=== PATIENT | female | born 1945 | race Caucasian/White ===

== ENCOUNTER 2018-10-25 13:17 | Emergency (ER) | payer OTHER ==
[~2018-10-25] VITALS: Ht 157.5 cm; Wt 59.9 kg
[2018-10-25 13:40] VITALS: BP 147/78
[2018-10-25 14:52] LABS: Basophils # (auto) 0 uL; Basophils % (auto) 0.4 % (0.0-2.0); Eosinophils # (auto) 0 uL; Eosinophils % (auto) 0.4 % (0.0-7.0); Hematocrit 42.9 % (36.0-46.0); Hemoglobin 14.3 g/dL (12.2-16.2); Lymphocytes # (auto) 1.5 uL; Lymphocytes % (auto) 19.5 % (10.0-50.0); Mean Corpuscular Hemoglobin 29.9 pg (28.0-32.0); Mean Corpuscular Hgb Conc. 33.2 g/dL (32.0-36.0); Monocytes # (auto) 0.4 uL; Monocytes % (auto) 5.2 % (0.0-12.0); Neutrophils # (auto) 5.7 uL; Neutrophils % (auto) 74.5 % (37.0-80.0); Platelet Count (auto) 180 10^3/uL (140-450); Red Blood Cells 4.77 10^6/uL (4.0-5.20); White Blood Cell 7.7 10^3/uL (4.4-10.8)
[2018-10-25 15:12] LABS: Alanine Aminotransferase 16 U/L (13-56); Albumin 3.9 g/dL (3.4-5.0); Anion Gap 4 (5-15); Aspartate Aminotransferase 12 U/L (15-37); BUN/Creatinine Ratio 20.4; Blood Urea Nitrogen 19 mg/dL (7-18); Calcium 9.2 mg/dL (8.5-10.1); Carbon Dioxide 28 mmol/L (21-32); Chloride 108 mmol/L (98-107); GFR African American 76 mL/min; GFR Non-African American 62 mL/min; Glucose 148 mg/dL (74-106); Potassium 3.4 mmol/L (3.5-5.1); Sodium 140 mmol/L (136-145)
[2018-10-25 15:16] LABS: Alkaline Phosphatase 73 U/L (45-117); Bilirubin, Total 0.7 mg/dL (0.2-1.0); Total Protein 7.3 g/dL (6.4-8.2)
== END 2018-10-25 16:16 | disposition home or self-care (01) ==
LOC: ER 13:27
DX: S29.011A Strain of muscle and tendon of front wall of thorax, initial encounter (principal); S39.012A Strain of muscle, fascia and tendon of lower back, initial encounter; M48.061 Spinal stenosis, lumbar region without neurogenic claudication; M19.90 Unspecified osteoarthritis, unspecified site; W01.0XXA Fall on same level from slipping, tripping and stumbling without subsequent striking against object, initial encounter; Y93.89 Activity, other specified; Y92.098 Other place in other non-institutional residence as the place of occurrence of the external cause; Y99.8 Other external cause status
CPT/HCPCS: 36415; 71046; 72100; 80053; 84484; 85025

== ENCOUNTER 2018-11-04 09:19 | Emergency (ER) | payer OTHER ==
[~2018-11-04] VITALS: Ht 157.5 cm; Wt 58.5 kg
[2018-11-04 10:49] LABS: Basophils # (auto) 0 uL; Basophils % (auto) 0.3 % (0.0-2.0); Eosinophils # (auto) 0 uL; Eosinophils % (auto) 0.2 % (0.0-7.0); Hematocrit 44.5 % (36.0-46.0); Hemoglobin 14.9 g/dL (12.2-16.2); Lymphocytes # (auto) 1.3 uL; Lymphocytes % (auto) 22.5 % (10.0-50.0); Mean Corpuscular Hemoglobin 29.5 pg (28.0-32.0); Mean Corpuscular Hgb Conc. 33.5 g/dL (32.0-36.0); Mean Corpuscular Volume 88.3 fL (80.0-100.0); Monocytes # (auto) 0.4 uL; Monocytes % (auto) 6.7 % (0.0-12.0); Neutrophils # (auto) 4.2 uL; Neutrophils % (auto) 70.3 % (37.0-80.0); Platelet Count (auto) 195 10^3/uL (140-450); Red Blood Cells 5.04 10^6/uL (4.0-5.20); Red Cell Distribution Width 13.4 % (11.8-14.3)
[2018-11-04 11:02] LABS: Alanine Aminotransferase 19 U/L (13-56); Albumin 3.8 g/dL (3.4-5.0); Anion Gap 7 (5-15); Aspartate Aminotransferase 15 U/L (15-37); BUN/Creatinine Ratio 18.4; Blood Urea Nitrogen 14 mg/dL (7-18); Calcium 8.7 mg/dL (8.5-10.1); Carbon Dioxide 22 mmol/L (21-32); Chloride 108 mmol/L (98-107); GFR African American 95 mL/min; GFR Non-African American 79 mL/min; Glucose 108 mg/dL (74-106); Potassium 3.7 mmol/L (3.5-5.1); Sodium 137 mmol/L (136-145)
[2018-11-04 11:07] LABS: Alkaline Phosphatase 75 U/L (45-117); Bilirubin, Total 0.9 mg/dL (0.2-1.0); Total Protein 7.5 g/dL (6.4-8.2)
[2018-11-04 13:55] VITALS: BP 114/79
== END 2018-11-04 13:58 | disposition home or self-care (01) ==
LOC: ER 09:19
DX: R55 Syncope and collapse (principal); R51 Headache; K76.89 Other specified diseases of liver; M51.36 Other intervertebral disc degeneration, lumbar region; W18.39XA Other fall on same level, initial encounter; Y93.89 Activity, other specified; Y92.89 Other specified places as the place of occurrence of the external cause; Y99.8 Other external cause status
CPT/HCPCS: 36415; 70450; 71046; 74176; 80053; 84484; 85025; 93005

== ENCOUNTER 2022-09-14 06:46 | Inpatient (IN) | payer OTHER ==
[~2022-09-14] VITALS: Ht 157.5 cm; Wt 64.9 kg
[~2022-09-14 06:46] MED LIST: ALEN70TA74 PO; LEVO25TA6 PO; SIMV-13 PO
[2022-09-14] MEDS ORDERED: SUCCINYLCHOLINE CHLORIDE 20 MG/ML 10ML VIAL IV ONE (06:50)
[2022-09-14] MEDS ORDERED: ROCURONIUM 10MG/ML 10ML VIAL IV ONE (06:50)
[2022-09-14] MEDS ORDERED: ceFAZolin 1GM/50ML 50 ML IV ONE (06:56)
[2022-09-14] MEDS ORDERED: ONDANSETRON HCL 4 MG/2 ML VIAL ONE (07:07)
[2022-09-14] MEDS ORDERED: PROPOFOL 10 MG/ML 20 ML IV ONE (07:07)
[2022-09-14] MEDS ORDERED: DexAMETHasone SOD PHOS 10MG/1ML VIAL INJ ONE (07:07)
[2022-09-14] MEDS ORDERED: NEOSTIGMINE 1 MG/ML INJ (10mg/10ML VIAL) ONE (07:07)
[2022-09-14] MEDS ORDERED: HYDROmorphone HCL 2 MG/ML VL/or syr ONE (07:07)
[2022-09-14] MEDS ORDERED: MIDAZOLAM HCL 2MG/2ML 2ml VIAL (1mg/ml) ONE (07:07)
[2022-09-14] MEDS ORDERED: fentaNYL CITRATE 100 MCG/2 ML VL ONE (07:07)
[2022-09-14] MEDS ORDERED: SODIUM CHLORIDE LOCK 40 ML ONE (07:07)
[2022-09-14] MEDS ORDERED: THROMBIN (BOVINE) 5000 UNIT SOL VIAL ONE (07:12)
[2022-09-14] MEDS ORDERED: MINERAL OIL TOPICAL 10ml TOP ONE (07:23)
[2022-09-14] MEDS ORDERED: ACETAMINOPHEN 325 MG TAB PO PRN (10:45)
[2022-09-14] MEDS ORDERED: MORPHINE SULFATE INJ 2 MG/ml SYRG IV PRN ×3 (10:45→12:45)
[2022-09-14] MEDS ORDERED: ONDANSETRON HCL 4 MG/2 ML VIAL IV PRN (10:45)
[2022-09-14] MEDS ORDERED: DexAMETHasone INJECTION 10 MG in D5W 5% 50 ML IV ONE (10:45)
[2022-09-14] MEDS: ceFAZolin 1GM/50ML 50 ML IV SCH ×2 (10:45→18:24)
[2022-09-14] MEDS ORDERED: HYDROcodone-ACET 10/325MG TAB PO PRN (10:45)
[2022-09-14] MEDS ORDERED: THROAT LOZENGES(CEPASTAT) MT PRN (10:45)
[2022-09-14] MEDS ORDERED: MORPHINE SULFATE INJ 2 MG/ml SYRG IV ONE (11:17)
[2022-09-14] MEDS ORDERED: METOCLOPRAMIDE HCL 5MG/ml INJ 2ml VIAL IV PRN (11:45)
[2022-09-14] MEDS ORDERED: HYDROmorphone HCL 2 MG/ML VL/or syr IV PRN ×2 (11:45)
[2022-09-14] MEDS: METHOCARBAMOL 500 MG TAB PO SCH ×3 (12:00→21:51)
[2022-09-14] MEDS ORDERED: NITROGLYCERIN 0.4 MG SL TAB SL PRN (12:45)
[2022-09-14 16:54] VITALS: BP 111/44
[2022-09-14] MEDS: D5W/SOD CHLO 0.9% 1,000 ML IV SCH ×2 (17:21→20:45)
[2022-09-14 22:00] VITALS: BP 133/62
[2022-09-15] MEDS: ceFAZolin 1GM/50ML 50 ML IV SCH (02:50)
[2022-09-15 05:00] VITALS: BP 139/63
[2022-09-15] MEDS: METHOCARBAMOL 500 MG TAB PO SCH ×4 (05:37→21:46)
[2022-09-15] MEDS: D5W/SOD CHLO 0.9% 1,000 ML IV SCH ×2 (06:45→16:45)
[2022-09-15 08:46] VITALS: BP 111/47
[2022-09-15] MEDS ORDERED: diphenhdrAMINE HCL 25 MG CAP PO PRN (11:45)
[2022-09-15 12:26] VITALS: BP 108/38
[2022-09-15 16:46] VITALS: BP 113/45
[2022-09-15] MEDS ORDERED: DexAMETHasone SOD PHOS 10MG/1ML VIAL INJ IM ONE (21:15)
[2022-09-15] MEDS ORDERED: DexAMETHasone SOD PHOS 10MG/1ML VIAL INJ IV ONE (21:45)
[2022-09-15 22:00] VITALS: BP 114/46
[2022-09-16] MEDS: D5W/SOD CHLO 0.9% 1,000 ML IV SCH (02:45)
[2022-09-16] MEDS: METHOCARBAMOL 500 MG TAB PO SCH ×2 (05:26→11:00)
[2022-09-16 06:25] VITALS: BP 127/53
[2022-09-16] MEDS ORDERED: DexAMETHasone SOD PHOS 10MG/1ML VIAL INJ IV ONE (08:00)
[2022-09-16] MEDS ORDERED: DexAMETHasone SOD PHOS 10MG/1ML VIAL INJ IM ONE (08:00)
[2022-09-16 09:00] VITALS: BP 144/66
== END 2022-09-16 10:38 | disposition home health service (06) | DRG 473 ==
LOC: SUR 06:46 → WEST WING 12:54 → TELE-WESTW 14:16
PROVIDERS: ADMIT Orthopaedic Surgery; ATTEND Orthopaedic Surgery
PROC: 0RB30ZZ Excision of Cervical Vertebral Disc, Open Approach (ICD-10-PCS; 2022-09-14)
PROC: 01N10ZZ Release Cervical Nerve, Open Approach (ICD-10-PCS; 2022-09-14)
PROC: 0RG20A0 Fusion of 2 or more Cervical Vertebral Joints with Interbody Fusion Device, Anterior Approach, Anterior Column, Open Approach (ICD-10-PCS; principal; 2022-09-14 07:42)
DX: M48.02 Spinal stenosis, cervical region (principal); M54.12 Radiculopathy, cervical region; E03.9 Hypothyroidism, unspecified; E78.00 Pure hypercholesterolemia, unspecified; R29.818 Other symptoms and signs involving the nervous system; Z82.49 Family history of ischemic heart disease and other diseases of the circulatory system
CPT/HCPCS: 72040; 76000; 86850; 86900; 86901; 97110; 97116; 97163; 97530; G0378; J0330; J0690; J1100; J2250; J2405; J2704; J7042; J7060